=== PATIENT | female | born 1975 | race Two or more races ===

== ENCOUNTER 2019-08-08 06:23 | Inpatient (IN) ==
[2019-08-08] MEDS ORDERED: FAMOTIDINE 20 MG/2 ML VIAL IV ONE (07:38)
[2019-08-08] MEDS ORDERED: ceFAZolin 3,000 MG in SYRINGE 1 EACH IV ONE (07:38)
[2019-08-08] MEDS ORDERED: CITRIC ACID/SODIUM CITRATE 30 ML UDCUP PO ONE (07:38)
[2019-08-08] MEDS ORDERED: OXYTOCIN/LR 30 UNIT/1,000 ML BAG IV ONE (07:42)
[2019-08-08] MEDS ORDERED: OXYTOCIN 10 UNIT/ML VIAL IM ONE (07:42)
[2019-08-08 08:00] LABS: Basophils # 0.1 10*3/uL (0.0-0.2); Basophils % 0.6 % (0.0-0.8); Eosinophils # 0.1 10*3/uL (0.0-0.87); Hematocrit 38.5 VOL% (35.7-47.0); Hemoglobin 12.3 GM/DL (12.0-16.0); Immature Granulocytes % 0.6 %; Immature Granulocytes Absolute 0.06 #; Lymphocytes # 2.7 10*3/uL (1.4-4.0); Lymphocytes % 27.2 % (21.3-54.2); Mean Corpuscular HGB Conc 31.9 GM/DL (32-36); Mean Corpuscular Volume 90.8 FL (87-102); Monocytes % 5.8 % (1.7-12.7); NRBC # 0.02 10*3/uL; Neutrophils % 64.8 % (38.7-73.9); Platelet Count 209 T/CUMM (130-400); Red Blood Count 4.24 MC/CUMM (3.8-5.5); Red Cell Distribution Width 15.2 % (9.3-17.3); White Blood Count 9.8 T/CUMM (4-12)
[2019-08-08] MEDS ORDERED: LACTATED RINGERS 1,000 ML IV SCH ×2 (08:00→22:30)
[2019-08-08 08:21] LABS: Albumin 2.4 G/DL (3.4-5.0); Bilirubin,Total 0.6 MG/DL (0.2-1.0); Calcium 8.9 MG/DL (8.5-10.1); Osmolality,Calculated 270.8 MOS/KG (273-304); Total Protein 7.1 G/DL (6.4-8.3)
[2019-08-08 11:43] LABS: Apearance,Urine CLEAR (Clear); Bacteria,Urine Occasional /HPF (Few); Bilirubin,Urine Negative (Negative); Blood, Urine Negative (Negative); Glucose,Urine (UA) Negative (Negative); Ketones,Urine Negative (Negative); Nitrite,Urine Negative (Negative); Protein,Urine Negative; RBC,Urine 1 /HPF (0-4); Squamous Epithelial Cell,Urine Occasional /HPF (0-10); Urine Color Straw (Yellow); Urine Specific Gravity 1.006 (1.001-1.035); Urine Urobilinogen < 2.0 EU/DL (0.2-1.0); WBC,Urine <1 /HPF (0-6)
[2019-08-08 11:45] LABS: Cord Venous Blood HCO3 22.5 MMOL/L; Cord Venous Blood PCO2 48.7 MMHG; Cord Venous Blood PO2 25.2
[2019-08-08] MEDS ORDERED: PHENYLEPHRINE 1 MG/10 ML SYRINGE IV ONE (12:52)
[2019-08-08] MEDS ORDERED: ONDANSETRON 4 MG/2 ML VIAL ONE ×2 (12:52→12:53)
[2019-08-08] MEDS ORDERED: ePHEDrine 50 MG/ML AMP ONE (12:53)
[2019-08-08] MEDS ORDERED: BUPIVACAINE SPINAL 0.75% 2 ML AMP SPINAL ONE (12:53)
[2019-08-08] MEDS ORDERED: PHENYLEPHRINE 10 MG/1 ML VIAL IV ONE (13:01)
[2019-08-08] MEDS ORDERED: LACTATED RINGERS 1,000 ML IV ONE (13:01)
[2019-08-08] MEDS ORDERED: SODIUM CHLORIDE 0.9% 100 ML IV ONE ×2 (13:01→17:58)
[2019-08-08] MEDS ORDERED: MORPHINE 10 MG/10 ML VIAL ONE (13:01)
[2019-08-08] MEDS ORDERED: GLUCAGON 1 MG VIAL IM PRN (13:51)
[2019-08-08] MEDS ORDERED: DEXTROSE 10% 250 ML BAG IV PRN (13:51)
[2019-08-08] MEDS ORDERED: ONDANSETRON 4 MG/2 ML VIAL IV PRN (15:16)
[2019-08-08] MEDS ORDERED: INSULIN LISPRO 100 UNIT/ML SUBCUT SCH (18:00)
[2019-08-08] MEDS: ceFAZolin 1,000 MG in SYRINGE 1 EACH IV SCH (18:15)
[2019-08-08 18:57] LABS: Basophils % 0.3 % (0.0-0.8); Eosinophils # 0.1 10*3/uL (0.0-0.87); Eosinophils % 0.7 % (0.00-10.9); Hematocrit 36.1 VOL% (35.7-47.0); Hemoglobin 11.4 GM/DL (12.0-16.0); Immature Granulocytes % 0.6 %; Immature Granulocytes Absolute 0.08 #; Lymphocytes # 2.6 10*3/uL (1.4-4.0); Lymphocytes % 20.7 % (21.3-54.2); Mean Corpuscular HGB Conc 31.6 GM/DL (32-36); Mean Corpuscular Volume 91.4 FL (87-102); Mean Platelet Volume 12.8 FL (9.6-12.0); Monocytes % 5.1 % (1.7-12.7); Neutrophils % 72.6 % (38.7-73.9); Platelet Count 155 T/CUMM (130-400); Red Blood Count 3.95 MC/CUMM (3.8-5.5); Red Cell Distribution Width 14.9 % (9.3-17.3); White Blood Count 12.3 T/CUMM (4-12)
[2019-08-08] MEDS: INSULIN REGULAR 100 UNIT/ML SUBCUT SCH (19:00)
[2019-08-08] MEDS ORDERED: BISACODYL 10 MG SUPP RECTAL PRN (20:30)
[2019-08-08] MEDS ORDERED: LANOLIN 50% CREAM 0.3 OZ TUBE TOP PRN (20:30)
[2019-08-08] MEDS ORDERED: oxyCODONE/ACETAMINOPHEN 5-325 MG TABLET PO PRN (20:30)
[2019-08-08] MEDS ORDERED: HYDROCORTISONE 2.5% RECTAL CREAM 30 GM TUBE TOP PRN (20:30)
[2019-08-08] MEDS ORDERED: ACETAMINOPHEN 325 MG TABLET PO PRN (20:30)
[2019-08-08] MEDS ORDERED: BENZOCAINE 20%/MENTHOL 0.5% SPRAY 56 GM CAN TOP PRN (20:30)
[2019-08-08] MEDS ORDERED: IBUPROFEN 800 MG TABLET PO PRN (20:30)
[2019-08-08] MEDS ORDERED: WITCH HAZEL PADS 100/JAR TOP PRN (20:30)
[2019-08-08] MEDS ORDERED: RHO(D) IMMUNE GLOBULIN 300 MCG SYRINGE IM ONE (20:30)
[2019-08-08] MEDS ORDERED: MEASLES/MUMPS/RUBELLA VACCINE 0.5 ML VIAL SUBCUT ONE (20:30)
[2019-08-08] MEDS ORDERED: DIPH/TET/ACEL PERT BOOSTER VACCINE 0.5 ML VIAL IM ONE (20:30)
[2019-08-09] MEDS ORDERED: SODIUM CHLORIDE 0.9% 50 ML IV ONE (01:23)
[2019-08-09] MEDS: ceFAZolin 1,000 MG in SYRINGE 1 EACH IV SCH (01:34)
[2019-08-09] MEDS: INSULIN REGULAR 100 UNIT/ML SUBCUT SCH ×5 (05:42→21:02)
[2019-08-09 06:17] LABS: Basophils % 0.4 % (0.0-0.8); Eosinophils # 0.1 10*3/uL (0.0-0.87); Hematocrit 32.7 VOL% (35.7-47.0); Hemoglobin 10.8 GM/DL (12.0-16.0); Immature Granulocytes % 0.5 %; Immature Granulocytes Absolute 0.06 #; Lymphocytes % 18.2 % (21.3-54.2); Mean Corpuscular Volume 87.9 FL (87-102); Mean Platelet Volume 11.9 FL (9.6-12.0); Monocytes % 5.2 % (1.7-12.7); NRBC # 0.02 10*3/uL; Neutrophils % 74.7 % (38.7-73.9); Platelet Count 135 T/CUMM (130-400); Red Blood Count 3.72 MC/CUMM (3.8-5.5); Red Cell Distribution Width 14.9 % (9.3-17.3)
[2019-08-09] MEDS: METOCLOPRAMIDE 10 MG TABLET PO SCH ×2 (08:32→15:17)
[2019-08-09] MEDS: MAGNESIUM HYDROXIDE SUSP 30 ML UDCUP PO SCH (08:32)
[2019-08-09] MEDS: DOCUSATE SODIUM 100 MG CAPSULE PO SCH ×2 (08:32→21:02)
[2019-08-09] MEDS: oxyCODONE/ACETAMINOPHEN 5-325 MG TABLET PO PRN ×3 (08:32→21:02)
[2019-08-10] MEDS: METOCLOPRAMIDE 10 MG TABLET PO SCH ×2 (00:18→08:13)
[2019-08-10] MEDS: INSULIN REGULAR 100 UNIT/ML SUBCUT SCH ×2 (08:11→12:52)
[2019-08-10] MEDS: oxyCODONE/ACETAMINOPHEN 5-325 MG TABLET PO PRN (08:13)
[2019-08-10] MEDS: DOCUSATE SODIUM 100 MG CAPSULE PO SCH (08:13)
[2019-08-10] MEDS: MAGNESIUM HYDROXIDE SUSP 30 ML UDCUP PO SCH (08:13)
[2019-08-10 10:37] VITALS: BP 130/72
== END 2019-08-10 16:35 | disposition home or self-care (01) | DRG 788 ==
LOC: N.LD 06:23 → N.OB 14:18
PROVIDERS: ADMIT Obstetrics & Gynecology; ATTEND Obstetrics & Gynecology
PROC: LDCSECT (ICD-10-PCS; 2019-08-08 07:15)